=== PATIENT | female | born 1970 | race African-American/Black ===

== ENCOUNTER 2016-11-17 21:56 | Emergency (ER) | payer OTHER ==
[~2016-11-17] VITALS: Ht 167.6 cm; Wt 78.0 kg
[2016-11-17] MEDS ORDERED: HYDROmorphone 1 MG/ML, 1ML ONE (23:22)
[2016-11-17] MEDS ORDERED: ONDANSETRON 2MG/ML, 2ML ONE (23:22)
[2016-11-17] MEDS ORDERED: HYDROmorphone 1 MG/ML, 1ML IVPush PRN (23:30)
[2016-11-17] MEDS ORDERED: PLEASE ENTER ALLERGIES MC SCH ×2 (23:30)
[2016-11-17] MEDS ORDERED: ONDANSETRON 2MG/ML, 2ML IVPush ONE (23:30)
[2016-11-17 23:52] LABS: HEMATOCRIT 43.2 % (34.6-47.8); HEMOGLOBIN 14.1 g/dL (11.7-16.4); WHITE BLOOD COUNT 5.9 x10^3/uL (3.4-10)
[2016-11-18 00:04] LABS: ASPARTATE AMINO TRANSFERASE 16 U/L (15-37); BLOOD UREA NITROGEN 9 mg/dL (7-18)
[2016-11-18] MEDS ORDERED: methylPREDNISolone SOD SUCC 125 MG/2 ML IVPush SCH (02:30)
[2016-11-18] MEDS ORDERED: methylPREDNISolone SOD SUCC 125 MG/2 ML ONE (02:32)
[2016-11-18 02:39] VITALS: BP 145/98
== END 2016-11-18 03:02 | disposition home or self-care (01) ==
LOC: ED 11-18 02:25
DX: M54.12 Radiculopathy, cervical region (principal)
CPT/HCPCS: 36415; 72141; 72146; 80053; 85025; 96374; 96375; 99285; J1170; J2405; J2930

== ENCOUNTER 2016-11-21 21:56 | Emergency (ER) | payer OTHER ==
[~2016-11-21] VITALS: Ht 165.1 cm; Wt 92.6 kg
[2016-11-21] MEDS ORDERED: HYDROmorphone 1 MG/ML, 1ML IM ONE (23:00)
[2016-11-21] MEDS ORDERED: KETOROLAC 30 MG/1 ML IM ONE (23:00)
[2016-11-21] MEDS ORDERED: KETOROLAC 30 MG/1 ML ONE ×2 (23:03→23:07)
[2016-11-21] MEDS ORDERED: HYDROmorphone 1 MG/ML, 1ML ONE (23:03)
[2016-11-22 00:19] VITALS: BP 131/75
== END 2016-11-22 00:52 | disposition home or self-care (01) ==
LOC: ED 23:59
DX: M54.2 Cervicalgia (principal); M54.12 Radiculopathy, cervical region
CPT/HCPCS: 93005; 96372; 99284; J1170; J1885

== ENCOUNTER → 2016-12-20 | Outpatient (CLI) | payer OTHER | END | disposition home or self-care (01) | LOC: RAD 19:13 | PROVIDERS: ATTEND Orthopaedic Surgery | DX: M50.323 Other cervical disc degeneration at C6-C7 level (principal) | CPT/HCPCS: 72052 ==

== ENCOUNTER → 2017-01-23 | Outpatient (CLI) | payer OTHER | END | disposition home or self-care (01) | LOC: CFH 09:51 | PROVIDERS: ATTEND Family Medicine | DX: R06.2 Wheezing (principal); Z72.0 Tobacco use | CPT/HCPCS: 71020 ==

== ENCOUNTER → 2017-07-26 | Outpatient (CLI) | payer OTHER ==
[~2017-07-26] MED LIST: OMNIPAQUE 350 MG/ML, 150 ML BOTTLE ONE
== END | disposition home or self-care (01) ==
LOC: CFH 10:31
PROVIDERS: ATTEND Family Medicine
DX: N28.1 Cyst of kidney, acquired (principal); E27.9 Disorder of adrenal gland, unspecified; R31.21 Asymptomatic microscopic hematuria
CPT/HCPCS: 74178; Q9967